=== PATIENT | male | born 1975 | race African-American/Black ===

== ENCOUNTER → 2017-01-15 | Outpatient (CLI) | payer OTHER ==
[~2017-01-15] MED LIST: LORTAB 10-3251 EACH PO; SINUS & ALLERG1 EACH PO
--- NOTE | ~2017-01-15 | EKG ---
PATIENT: TJ VALLADARES UNIT #: [id number] Ventricular Rate: 72 BPM Atrial Rate: 72 BPM P-R Interval: 138 ms QRS Duration: 84 ms Q-T Interval: 416 ms QTC Calculation(Bezet): 455 ms P Santa: 72 degrees Calculated R Santa: 63 degrees Calculated T Santa: 28 degrees Diagnosis Line: Normal sinus rhythm Diagnosis Line: Normal ECG Diagnosis Line: No previous ECGs available Diagnosis Line: Confirmed by SHASHA PORTER MD ([id number]) on Diagnosis Line: 01/16/2017 4:26:59 PM INTERPRETING MD: CHARLOTTE MCGILL
== END | disposition home or self-care (01) ==
LOC: CAMB 10:56
DX: Z01.810 Encounter for preprocedural cardiovascular examination (principal); K43.9 Ventral hernia without obstruction or gangrene
CPT/HCPCS: 93005

== ENCOUNTER 2017-01-19 05:47 | Inpatient (IN) | payer OTHER ==
--- NOTE | ~2017-01-19 | CT2 ---
[facility] A Service of [facility] RADIOLOGY TEXT RESULTS PATIENT: TJ VALLADARES JR LOCATION: [facility] 466-01 : [birth year] UNIT #: [id number] AGE: [address]: Rodriguez Vergara MD SEX: M ORDER DR: [id number] [facility] [address] [place], [place] [address] [id number] I MR#: [id number] Acc #: [id number] NAME: TJ VALLADARES : 1975 SEX: M STUDY DATE/TIME: 01/21/2017 10:11 UNIT: [facility] ROOM: [facility] STUDY DESCRIPTION: CT Abd and Pelv W Cont Attending Physician: Rodriguez Vergara Jr., M.D. Ordering Physician: Amaury Kennedy M.D. Primary Care Physician: Primary Care Physician No MEDICAL IMAGING REPORT This report is preliminary unless electronic signature is present EXAM CT abdomen and pelvis with contrast HISTORY 41-year-old male history of hernia repair 01/19/2017; complains of mid abdominal pain 2 days postop. Past history of colon resection for diverticulitis July 2016. COMPARISON None TECHNIQUE Axial images performed through the abdomen and pelvis following IV and oral contrast. Multiplanar reconstructed images reviewed at a workstation. This CT exam was performed with one or more of the following radiation dose reduction techniques: automatic exposure control, adjustment of mA and/or kV according to patient size, and iterative reconstruction. FINDINGS Abdomen: There is a moderate amount of bibasilar atelectasis. No effusions. The liver, spleen, gallbladder, pancreas, kidneys and adrenal glands unremarkable. There is a small amount of free fluid in the anterior abdomen with a small amount of free intraperitoneal air consistent with patient's history of recent surgery. The fluid does not appear high density to suggest blood. Stomach, proximal small bowel unremarkable. There is some mild distension of the distal small bowel. There is mild colonic wall thickening involving the right colon and right transverse colon with some mild lissa cecal inflammatory change. It is nonspecific and may be infectious or inflammatory in nature. Several surgical clips are seen within the right anterior mesentery. Pelvis: Bladder and prostate unremarkable. Osseous structures STS. [facility] A Service of [facility] RADIOLOGY TEXT RESULTS PATIENT: TJ VALLADARES JR LOCATION: [facility] 466-01 : [birth year] UNIT #: [id number] AGE: [address]: Rodriguez Vergara MD SEX: M ORDER DR: unremarkable. Soft tissue induration and soft tissue gas is seen in the left inguinal region related to recent inguinal surgery. There is some skin thickening and edema at the level of the skin chase. There is also some induration within the mesentery within the left lower quadrant, anteriorly which may be related to the site of hernia repair. Induration and soft tissue gas noted at the laparoscopic portals sites along the right and left anterior abdominal orlando. No drainable fluid collection or abscess identified. IMPRESSION 1. Focal induration of the soft tissues within the left inguinal and groin region with a small amount of interspersed gas consistent with recent operative intervention and hernia repair. This could represent some focal inflammatory change but no drainable fluid collection or abscess seen. There is also some induration edema within the mesentery within the left lower quadrant deep to the site of skin incision and presumed site of hernia repair. Additionally noted is small amount of induration and gas at the apparent laparoscopic portals of right and left lower abdomen. There is some induration deep to the staple line in the left anterior lower abdomen could represent some focal hemorrhage but again no drainable fluid collection or abscess seen. 2. Questionable mild right colonic wall thickening and some minimal pericolonic inflammatory change and edema in the right pericolic gutter and lateral coronal fascia. This is nonspecific but could represent some focal inflammatory change. 3. Small amount of free intraperitoneal air and a small amount of intraperitoneal fluid nonspecific in the setting of recent abdominal surgery. 4. Moderate amount of bibasilar atelectasis. 5. Slight increase in small bowel fluid. Mild distension may represent a component of an ileus. 6. Postsurgical changes from apparent partial colon resection. Dictated by... Audie Sheriff M.D. THIS IS AN ELECTRONICALLY VERIFIED REPORT Audie Sheriff M.D. at 01/21/2017 4:49 PM COLLIN/jose antonio TD: 01/21/2017 12:00 JOB #: [id number] MEDICAL IMAGING REPORT Page 1 of 1 COPY
--- NOTE | ~2017-01-19 | DS ---
Unit #: [id number] #: [id number] Patient: TJ VALLADARES JR [id number] [address] [place], [place] [address] [id number] I MR#: [id number] NAME: TJ VALLADARES JR ROOM: [facility] Age: 41 Sex: M Admission Date: 01/19/2017 : 1975 Discharge Date: 01/23/2017 Attending Physician: Rodriguez Vergara Jr., M.D. DISCHARGE SUMMARY PRIMARY REASON FOR ADMISSION Ventral hernia repair. HISTORY OF PRESENT ILLNESS The patient is a 41-year-old gentleman who was admitted for a ventral hernia repair. He had had a previous sigmoid colectomy for diverticulitis with a hand-assisted procedure laparoscopically, and he developed a hernia at the periumbilical area just below and to the right. PHYSICAL EXAMINATION See admission History and Physical. HOSPITAL COURSE Patient was admitted and brought to the operating room for repair of an incarcerated ventral hernia. He tolerated the procedure well. However, he had pain somewhat out of proportion postoperatively. A CT scan was done on postop day two which was essentially benign. His labs remained normal. He was subsequently advanced up to a regular diet. He was ambulating in the halls, and pain was controlled with Watkins. He was deemed ready for discharge home on January 23. DISPOSITION Home. CONDITION Good. DISCHARGE MEDICATIONS We will send him home with Watkins 10. Otherwise, he is to continue all previous home medications. FOLLOWUP We will see him back in the office in two weeks. Dictated by... Kemi Ingram/radha TD: 01/24/2017 21:42 JOB #: [id number] Unit #: [id number] #: [id number] Patient: TJ VALLADARES JR DISCHARGE SUMMARY Page 1 of 1 X Dominic Chavira DISCHARGE SUMMARY
--- NOTE | ~2017-01-19 | OR ---
Unit #: [id number] #: [id number] Patient: TJ VALLADARES JR [id number] [address] [place], [place] [address] [id number] I MR#: [id number] NAME: TJ VALLADARES JR ROOM: 466 Date of Procedure: 01/19/2017 Admission Date: 01/19/2017 Surgeon: Rodriguez Vergara Jr., M.D. : 1975 Attending Physician: Rodriguez Vergara Jr., M.D. OPERATIVE REPORT INDICATION FOR PROCEDURE The patient is a 41-year-old black male, who was recently seen in the office complaining of a ventral incisional hernia. He had a previous sigmoid colectomy for diverticulitis with hand assisted procedure laparoscopically and developed a hernia in the periumbilical area just below into the right postoperatively. He also has questionable left inguinal hernia and possibly a right. On examination, it was felt he needed a diagnostic laparoscopy and laparoscopic ventral hernia repair, possible inguinal hernia repairs. The patient understands the procedures including the risks, including that of recurrence, infection, bleeding, intra-abdominal organ injury, and consents. PREOPERATIVE DIAGNOSES Possible inguinal hernias with incarcerated ventral incisional hernia. POSTOPERATIVE DIAGNOSES Possible inguinal hernias with incarcerated ventral incisional hernia, noting incarcerated ventral incisional hernia with multiple adhesions intra-abdominally as well as a large left direct inguinal hernia, but no evidence of any hernias on the right. ANESTHESIA General with endotracheal intubation and 0.5% Marcaine with epinephrine locally. STICK PULLER Bere Blake. PROCEDURES PERFORMED Diagnostic laparoscopy, laparoscopic lysis of adhesions requiring 15 to 20 minutes followed by laparoscopic reduction of his incarcerated ventral hernia with laparoscopic ventral hernia repair using a 6 x 8 inch Ventralight mesh over the defect and open left inguinal hernia repair using an extra large plug and patch technique. DESCRIPTION OF PROCEDURE The patient was positioned in supine position. After being anesthetized and intubated, he was prepped and draped in routine fashion for laparoscopic ventral hernia repair. A small 0.5 cm incision was made in the right lateral abdominal wall area and a 5-mm Optiview was introduced into the abdomen followed by the camera. There was no evidence of any injury related to introduction of the Optiview. An additional 11-mm port Unit #: [id number] #: [id number] Patient: TJ VALLADARES JR was placed in the right lower quadrant abdominal wall area under direct visualization and a 5-mm port in the left upper and left lower abdominal wall areas under direct visualization. Intra-abdominal exploration was carried out. The patient was noted to have no evidence of any right inguinal hernia, but there was a large direct left inguinal hernia present. There were multiple adhesions of the omentum to the anterior abdominal wall with no evidence of any bowel loops within this hernia. The adhesions were taken down with Endo Randal as well as blunt dissection and herniated defect was exposed after the omentum was reduced from it. There was approximately a 5 to 6 cm defect. The falciform was taken down and some additional fatty tissue inferior was taken down with hook cautery. After the area was completely cleaned, a 6 x 8 inch Ventralight mesh was tacked in 4 corners, soaked in antibiotic solution, placed intraabdominal, and brought up against the anterior abdominal wall using the Endo Close needle through four 1 mm incisions as routine and tacked in place with SecureStrap. After this was complete, the sutures holding the mesh up were then lysed and the area was checked. There was no evidence of any bleeding from the adhesions or omentum or abdominal wall. After this was complete, the fascial port site in the right lower quadrant abdominal wall area was closed with a neoClose technique and the ports were then removed. CO2 was expressed from the abdomen. The port sites were injected with 0.5% Marcaine with epinephrine locally. There was no evidence of any bleeding from the port sites. The port sites were irrigated and after hemostasis achieved with Bovie cautery, skin edges were approximated with stainless-steel skin clips and skin stapling device. At this point, a transverse incision was made over the left inguinal canal approximately 4 inches in length. This was carried down through subcutaneous tissue through Arlyn and Camper fascia and the external oblique fascia. The external oblique was split from the external ring up to the internal ring and the cord structures were elevated from the pubic tubercle back to the internal ring. The patient was noted to have a large direct inguinal hernia. No evidence of any indirect present. The cremasteric fibers around the cord were then divided with the Bovie cautery and after again checking for evidence of any indirect sac, which was not apparent. The base of the attenuated tissue in the direct defect area was then scored with the Bovie cautery. An extra large plug was then placed and sutured circumferentially with interrupted 0 Ethibond sutures. The patch was placed over the floor of the inguinal canal and sutured circumferentially with interrupted 0 Ethibond sutures. The wound was irrigated with antibiotic solution. After adequate hemostasis was noted, the cord and ilioinguinal nerve were placed back beneath the external oblique fascia, which was then closed with a continuous 3-0 Vicryl suture. There was no evidence of any bleeding at all in the area. The Arlyn and Camper fascia was approximated with interrupted 3-0 Vicryl sutures. Skin edges approximated with stainless-steel skin clips and skin stapling device. Sterile dressings were applied externally. Estimated blood loss less than 100 mL. The patient received less than 2000 mL crystalloid solution during the procedure. Sponges and instrument counts were correct x3. No drains were used. No complications. The patient was taken to the recovery room with stable vital signs in satisfactory condition. Dictated by... Rodriguez Vergara Jr., MLizz CHAUHAN/danny Unit #: [id number] #: [id number] Patient: BLAINE TJ HDZ TD: 01/20/2017 01:44 JOB #: [id number] OPERATIVE REPORT Page 1 of 1 X Rodriguez Vergara MD X PROCEDURE OPERATIVE NOTE
[~2017-01-19 05:47] MED LIST changes: -LORTAB 10-3251 EACH PO
[2017-01-21 04:20] LABS: HEMATOCRIT 39.5 % (38.0-50.0); HEMOGLOBIN 13.2 gm/dL (13.0-16.0); MEAN CELL VOLUME 101.2 FL (83-96); MEAN CORPUSCULAR HEMOGLOBIN 33.8 PG (28-34); MEAN CORPUSCULAR HGB CONC 33.4 g/dL (30-36); MEAN PLATELET VOLUME 7.7 FL (6.5-11.5); RED BLOOD COUNT 3.91 X10e (3.90-5.60); RED CELL DISTRIBUTION WIDTH 12.2 % (11.0-15.5); WHITE BLOOD COUNT 18.6 X10e3 (4.0-10.5)
[2017-01-21 04:45] LABS: BUN/CREATININE RATIO 6.36; CALCIUM SERUM 8.8 mg/dL (8.4-10.2); CREATININE SERUM 1.1 mg/dL (0.6-1.4); GLOM FILT RATE Estimated 96.8 mL/min (>60); POTASSIUM 3.2 mmol/L (3.5-5.1)
[2017-01-21 10:28] LABS: BASOPHIL# 0.1 X10e3 (0-0.3); BASOPHIL% 0.5 % (0-2.5); EOSINOPHIL# 0.1 X10e3 (0-0.7); EOSINOPHIL% 0.3 % (0.0-7.0); HEMATOCRIT 40.4 % (38.0-50.0); HEMOGLOBIN 13.2 gm/dL (13.0-16.0); LYMPHOCYTE# 2.9 X10e3 (1.0-3.5); LYMPHOCYTE% 17.2 % (17.0-45.0); MEAN CELL VOLUME 102.1 FL (83-96); MEAN CORPUSCULAR HEMOGLOBIN 33.4 PG (28-34); MEAN CORPUSCULAR HGB CONC 32.7 g/dL (30-36); MONOCYTE# 1.2 X10e3 (0-1.0); MONOCYTE% 7.2 % (3.0-12.0); NEUTROPHIL# 12.6 X10e3 (1.5-7.1); NEUTROPHIL% 74.8 % (40-75); PLATELET COUNT 255 X10e3 (140-420); RED BLOOD COUNT 3.96 X10e (3.90-5.60); RED CELL DISTRIBUTION WIDTH 12.2 % (11.0-15.5); WHITE BLOOD COUNT 16.8 X10e3 (4.0-10.5)
[2017-01-21 10:29] LABS: DIFF IND YES
[2017-01-21 11:04] LABS: BUN/CREATININE RATIO 5.38; CREATININE SERUM 1.3 mg/dL (0.6-1.4); GLOM FILT RATE Estimated 79.1 mL/min (>60); POTASSIUM 3.4 mmol/L (3.5-5.1)
[2017-01-21 11:15] LABS: FOLATE (FOLIC ACID) 13.4 ng/mL (>5.8)
[2017-01-21 11:18] LABS: PLATELET ESTIMATE NORMAL (NORMAL)
[2017-01-22 02:02] LABS: HEMATOCRIT 38.6 % (38.0-50.0); HEMOGLOBIN 12.8 gm/dL (13.0-16.0); MEAN CELL VOLUME 101.7 FL (83-96); MEAN CORPUSCULAR HEMOGLOBIN 33.7 PG (28-34); MEAN CORPUSCULAR HGB CONC 33.2 g/dL (30-36); MEAN PLATELET VOLUME 8.1 FL (6.5-11.5); RED BLOOD COUNT 3.8 X10e (3.90-5.60); RED CELL DISTRIBUTION WIDTH 12.4 % (11.0-15.5); WHITE BLOOD COUNT 12.1 X10e3 (4.0-10.5)
[2017-01-22 02:33] LABS: BUN/CREATININE RATIO 7.27; CALCIUM SERUM 8.7 mg/dL (8.4-10.2); CREATININE SERUM 1.1 mg/dL (0.6-1.4); GLOM FILT RATE Estimated 96.8 mL/min (>60); MAGNESIUM 1.9 mg/dL (1.6-3.0); POTASSIUM 3.2 mmol/L (3.5-5.1)
[2017-01-23 03:29] LABS: HEMATOCRIT 38.6 % (38.0-50.0); HEMOGLOBIN 12.9 gm/dL (13.0-16.0); MEAN CELL VOLUME 101.9 FL (83-96); MEAN CORPUSCULAR HEMOGLOBIN 34.1 PG (28-34); MEAN CORPUSCULAR HGB CONC 33.4 g/dL (30-36); RED BLOOD COUNT 3.79 X10e (3.90-5.60); RED CELL DISTRIBUTION WIDTH 12.2 % (11.0-15.5); WHITE BLOOD COUNT 8.7 X10e3 (4.0-10.5)
[2017-01-23 04:29] LABS: BUN/CREATININE RATIO 8.18; CALCIUM SERUM 8.8 mg/dL (8.4-10.2); CREATININE SERUM 1.1 mg/dL (0.6-1.4); GLOM FILT RATE Estimated 96.8 mL/min (>60); POTASSIUM 4.4 mmol/L (3.5-5.1)
[2017-01-23] MEDS ORDERED: LORTAB 10-3251 EACH PO (10:48)
== END 2017-01-23 12:22 | disposition home or self-care (01) | DRG 337 ==
LOC: CSUR 05:47 → C4C 09:50 → CSUR 09:50 → C4C 09:50 → CPACUOF 09:50 → C4C 10:34 → CPACUOF 10:34 → CSUR 10:34 → C4C 11:42 → CPACUOF 11:42 → C4C 11:42
PROVIDERS: Specialist; Surgery
PROC: 0WUF4JZ Supplement Abdominal Wall with Synthetic Substitute, Percutaneous Endoscopic Approach (ICD-10-PCS; 2017-01-19)
PROC: 0YU60JZ Supplement Left Inguinal Region with Synthetic Substitute, Open Approach (ICD-10-PCS; principal; 2017-01-19 07:30)
PROC: 0DNS4ZZ (ICD-10-PCS; 2017-01-19 07:30)
DX: K43.0 Incisional hernia with obstruction, without gangrene (principal); F17.210 Nicotine dependence, cigarettes, uncomplicated; K66.0 Peritoneal adhesions (postprocedural) (postinfection); K40.90 Unilateral inguinal hernia, without obstruction or gangrene, not specified as recurrent; Z90.49 Acquired absence of other specified parts of digestive tract; Z88.5 Allergy status to narcotic agent; Z88.1 Allergy status to other antibiotic agents
CPT/HCPCS: 74177; 80048; 82607; 82746; 82747; 83735; 85025; 85027; 94760; 94761; C1787; J0330; J0690; J1170; J1650; J2250; J2405; J2543; J2550; J2710; J3010; Q9967

== ENCOUNTER → 2017-05-17 | Outpatient (CLI) | payer OTHER ==
[~2017-05-17] MED LIST changes: +LORTAB 10-3251 EACH PO
--- NOTE | ~2017-05-17 | CT2 ---
[facility] A Service of [facility] RADIOLOGY TEXT RESULTS PATIENT: TJ VALLADARES JR [facility] [birth year] UNIT #: [id number] AGE: [address]: Rodriguez Vergara MD SEX: M ORDER DR: [id number] [facility] [address]. [place], [place] [address] [id number] MR#: [id number] Acc #: [id number] NAME: TJ VALLADARES : 1975 SEX: M STUDY DATE/TIME: 05/17/2017 15:01 UNIT: [facility] ROOM: STUDY DESCRIPTION: CT Abd and Pelv W Cont Attending Physician: Rodriguez Vergara Jr., M.D. Referring Physician: Rodriguez Vergara Jr., M.D. Ordering Physician: Rodriguez Vergara Jr., M.D. Primary Care Physician: [facility] MEDICAL IMAGING REPORT This report is preliminary unless electronic signature is present EXAM CT of the abdomen and pelvis with contrast INDICATION Left lower quadrant pain, constipation for 2-3 weeks, history of diverticulitis. TECHNIQUE Axial CT images were obtained from the dome of the diaphragm through the symphysis pubis following administration of oral and intravenous contrast material. Patient had a history of left inguinal hernia repair in December 2016. This CT examination was performed with one or more of the following radiation dose reduction techniques: automatic exposure control, adjustment of mA and/or kV according to patient size, and iterative reconstruction. FINDINGS Images through the lung bases are clear. The stomach and proximal small bowel are within normal limits as are the adrenal glands, spleen, pancreas and kidneys. Gallbladder appears unremarkable. There is a low-attenuation lesion identified near the dome of the liver which I think may have some peripheral enhancement. I suspect this probably actually reflects a hemangioma. It was present on the December 2016 examination and I doubt is significantly changed. The gallbladder appears normal. There is no evidence of mechanical bowel obstruction. Patient's appendix is visualized and is within normal limits. Urinary bladder is within normal limits as is the prostate gland. Patient does have fairly extensive fecal burden seen throughout the colon. Correlation with history of constipation is recommended. There is diverticulosis but there is no evidence of diverticulitis. There are some areas of stranding identified within the omentum which actually appear STS. [facility] A Service of [facility] RADIOLOGY TEXT RESULTS PATIENT: TJ VALLADARES JR LOCATION: [facility] : [birth year] UNIT #: [id number] AGE: [address]: Rodriguez Vergara MD SEX: M ORDER DR: improved when compared to December 2016 and reflect some postoperative scarring. Within the hernia repair bed, there is a low-attenuation collection measuring about 3.4 x 2.8 cm. No bubbles of gas are seen within it to suggest superimposed infection and it does not show any rim enhancement. It is favored to be an evolving postoperative collection such as a seroma as the patient on prior CT did have a heterogeneous collection within this area. No adenopathy is seen within the pelvis. Review of bony windows does not demonstrate any aggressive osseous abnormalities. Patient does have postsurgical changes involving the sigmoid colon again without evidence of obstruction although there is certainly an appearance of constipation. IMPRESSION 1. On prior examination, this patient had a heterogeneous collection measuring up to 3.7 x 2.9 cm. This was an immediately postoperative examination from left inguinal hernia repair and I suspect that this collection was likely a hematoma. On today's examination, there is a low-attenuation collection which is smaller than on that examination. It measures about 3.4 x 2.8 cm and I suspect it reflects either evolving hematoma or seroma. It does not have any bubbles of gas within it or any peripheral enhancement to suggest abscess formation at this time. It could probably be considered for aspiration but is too small for percutaneous drain placement. 2. Changes of prior colon resection without evidence of mechanical obstruction. Patient is noted to have a large fecal burden seen throughout the colon and correlation with history of constipation is recommended. 3. Colonic diverticulosis without evidence of diverticulitis. 4. There is an ill-defined lesion seen near the dome of the liver which I suspect probably reflects a hemangioma. It measures about 1.2 cm in size but would be better characterized with liver protocol CT or MRI. Please see the body of the report for any other additional incidental findings. Dictated by... Hal Logan.D. THIS IS AN ELECTRONICALLY VERIFIED REPORT Zayra Brandt M.D. at 05/18/2017 5:07 PM AFF/mjchandni TD: 05/18/2017 10:52 JOB #: [id number] MEDICAL IMAGING REPORT [facility] A Service of [facility] RADIOLOGY TEXT RESULTS PATIENT: TJ VALLADARES JR [id number] : [birth year] UNIT #: [id number] AGE: [address]: Rodriguez Vergara MD SEX: M ORDER DR: Page 1 of 1 COPY
== END | disposition home or self-care (01) ==
LOC: CCAT 13:42
DX: R10.32 Left lower quadrant pain (principal); K57.30 Diverticulosis of large intestine without perforation or abscess without bleeding; K76.9 Liver disease, unspecified; Z98.890 Other specified postprocedural states; Z90.49 Acquired absence of other specified parts of digestive tract
CPT/HCPCS: 74177; Q9967